=== PATIENT | female | born 1970 | race Caucasian/White ===

== ENCOUNTER 2016-07-23 12:47 | Emergency (ER) | payer OTHER ==
--- NOTE | 2016-07-29 16:16 | ER ---
ADMIT: 07/23/2016 RM/LOC: ER [facility] MR#: [id number] [address] [address] STEELE [address] [place] [address] Emergency Room Report SEX: F AGE: 45 : 1970 DATE: 07/23/2016 CHIEF COMPLAINT: Lump on stomach. HISTORY OF PRESENT ILLNESS: A pleasant 45-year-old female, who presents to the ER after she found a lump on her stomach upon awakening today. The patient states she has never had anything like this in the past. She states she is concerned as she has a significant family history of cancer; however, she is unsure of what type of cancers her family members have suffered from. The patient states this is not painful. Denies any recent fever, chills, or diarrhea, otherwise was feeling well. Has a history of diabetes on oral as well as injectable Victoza, has a history of some thyroid nodules currently being followed. COURSE IN THE EMERGENCY ROOM: The patient was seen and examined. Does have a mobile 0.5 cm well-circumscribed mass in her abdomen that is not painful. Does have evidence of other injection site along her belly from the Victoza. Rest of the exam is otherwise unremarkable. I did get an ultrasound reviewed with radiologist concerning for injection site granuloma. 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 DISPOSITION: I encouraged the patient to follow up with [facility] as needed if she continues to have concerns or if the mass does not resolve or has any other concerning symptoms. Continue all of her home medications. Certainly return with any worsening signs or symptoms. Questions sought and answered to the best of my ability and to the patient's satisfaction. Discharged in stable condition. SHERLY Amaya / Polo Ambrocio MD / denice JOB #: [id number] CC: Polo Ambrocio MD, Attending Physician Franca Lagunas MD, Family Physician
== END 2016-07-23 14:58 | disposition home or self-care (01) ==
LOC: ER 12:47
DX: Z03.89 Encounter for observation for other suspected diseases and conditions ruled out (principal); E11.9 Type 2 diabetes mellitus without complications; E03.9 Hypothyroidism, unspecified; Z90.49 Acquired absence of other specified parts of digestive tract; Z79.84 Long term (current) use of oral hypoglycemic drugs

== ENCOUNTER 2016-07-28 08:12 | Emergency (ER) | payer OTHER ==
--- NOTE | 2016-07-28 17:49 | ER ---
ADMIT: 07/28/2016 RM/LOC: ER [facility] MR#: [id number] [address] [address] ST[address]LE [address] [place] [address] Emergency Room Report SEX: F AGE: 45 : 1970 DATE: 07/28/2016 TIME: 0812 hours. Please refer to my T-sheet for complete H and P. Briefly, the patient is a 45-year-old, comes in with migraine headache. It started yesterday. Feels like her migraine is diffuse all over. She is nauseous and light bothers it. PHYSICAL EXAMINATION: VITAL SIGNS: Stable. Blood pressure 155/101. GENERAL: No acute distress. HEENT: Grossly normal. No meningismus. LUNGS: Clear. SKIN: No rash. NEUROLOGIC: Alert and oriented, nonfocal. EMERGENCY DEPARTMENT COURSE: I gave her a liter of normal saline bolus, Reglan 10 IV, Toradol 30 IV, and DHE 1 mg IV. She was feeling much better, would get a ride home, was ready for discharge. ASSESSMENT: Acute migraine headache, treated in the Emergency Department as above. PLAN: Fluids, return if worse. Wrote her script for Reglan and follow up with Dr. Lagunas. Kaveh Zamora MD/ denice JOB #: [id number] CC: Kaveh Zamora MD, Attending Physician UNKNOWN, Family Physician
== END 2016-07-28 10:29 | disposition home or self-care (01) ==
LOC: ER 08:12
DX: G43.909 Migraine, unspecified, not intractable, without status migrainosus (principal); E11.9 Type 2 diabetes mellitus without complications; Z90.49 Acquired absence of other specified parts of digestive tract

== ENCOUNTER 2016-12-16 03:15 | Emergency (ER) | payer OTHER ==
--- NOTE | 2016-12-18 06:04 | ER ---
ADMIT: 12/16/2016 RM/LOC: ER [facility] MR#: [id number] [address] [address] ST[address]LE [address] [place] [address] Emergency Room Report SEX: F AGE: 46 : 1970 DATE: 12/16/2016 ADDENDUM: A 46-year-old female comes in with several days of pain in her right lower back into her buttock and down her thigh. She was seen in her primary care physician's office. Started on Gilman, Flexeril, and naproxen but states that she is still having pain, that is why she presented here this evening. She is not having any numbness, tingling, or weakness in her lower extremities and denies any loss of bowel or bladder control. On examination, she has positive straight leg test but good motor and sensory exam on her lower extremities. She does have pain with range of motion of lower back, but no tenderness of her lumbar spine with palpation. Based on her history and exam, I believe she does have sciatica. I am reluctant to put the patient on a steroid at this time due to her diabetes. She is currently already taking an NSAID, muscle relaxant, and Gilman for pain medication. She was given a shot of Toradol here and some Valium and feels better and at this point, she will be discharged home to continue her current medications and instructed that this will likely take some time for her sciatica exacerbation to calm down. She is to follow up with her primary care physician's office this next week to update how she is doing and she is to avoid lifting and she is to find a position that does not exacerbate her symptoms. DIAGNOSES: 1. Sciatica. 2. Acute low back pain. Fabricio Murphy MD/ denice JOB #: [id number] CC: Fabricio Murphy MD, Attending Physician
== END 2016-12-16 05:28 | disposition home or self-care (01) ==
LOC: ER 03:15
DX: M54.41 Lumbago with sciatica, right side (principal); E03.9 Hypothyroidism, unspecified; E11.9 Type 2 diabetes mellitus without complications; Z90.710 Acquired absence of both cervix and uterus; Z98.890 Other specified postprocedural states; Z79.899 Other long term (current) drug therapy